=== PATIENT | female | born 1995 | race Caucasian/White ===

== ENCOUNTER 2019-12-25 22:12 | Emergency (ER) | payer OTHER ==
[~2019-12-25] VITALS: Ht 172.7 cm; Wt 81.7 kg
[2019-12-25] MEDS ORDERED: ABILIFY10 MG PO (22:25)
[2019-12-25] MEDS ORDERED: DRIZALMA SPRINK60 MG PO (22:25)
[2019-12-25] MEDS ORDERED: HYDROXYZINE HCL25 M2 PO (22:26)
[2019-12-25] MEDS ORDERED: NORFLEX100 MG PO (23:20)
[2019-12-25] MEDS ORDERED: TORADOL 10 MG T10 MG PO ×2 (23:20→23:40)
[2019-12-25] MEDS ORDERED: ROBAXIN 750 MG750 MG PO (23:40)
[2019-12-25 23:42] VITALS: BP 123/70
== END 2019-12-25 23:42 | disposition home or self-care (01) ==
LOC: M.ERS 22:12
DX: S16.1XXA Strain of muscle, fascia and tendon at neck level, initial encounter (principal); V89.2XXA Person injured in unspecified motor-vehicle accident, traffic, initial encounter; Y93.89 Activity, other specified; Y92.89 Other specified places as the place of occurrence of the external cause; Y99.8 Other external cause status